=== PATIENT | female | born 2000 | race Caucasian/White ===

== ENCOUNTER 2021-09-03 10:49 | Emergency (ER) | payer MEDICAID ==
[~2021-09-03] VITALS: Ht 165.1 cm; Wt 77.1 kg
[2021-09-03 10:55] VITALS: BP_SYST 154
--- NOTE | 2021-09-03 10:55 | NUR ---
Placed in room 8 . Placed on cathode builder, blood pressure machine and pulse oximeter. To gown for exam. Side rails up.
--- NOTE | 2021-09-03 10:56 | NUR ---
PT BIB UBER FROM HOME C/O "FOOD POISONING" AND LLQ ABD PAIN STARTING THIS AM UPON WAKING UP. PT REPORTS HAVING N/V/D. PT IS MOANING IN PAIN UPON ARRIVAL. STATES SHE FEELS WEAK. PT IS AAOX4, V/S STABLE, AMBULATORY WITH STEADY GAIT
--- NOTE | 2021-09-03 10:57 | NUR ---
ER DR. JAY AT THE BEDSIDE EXAMINING PT
[2021-09-03] MEDS ORDERED: ONDANSETRON 4 MG ODT TAB PO ONE (11:00)
[2021-09-03] MEDS ORDERED: HALOPERIDOL LACTATE 5 MG/ML VIAL IM ONE (11:00)
--- NOTE | 2021-09-03 11:08 | NUR ---
Patient transported to radiology via WC, accompanied by STAFF.
[2021-09-03 11:12] LABS: BILIRUBIN,URINE NEGATIVE (NEGATIVE); CLARITY/URINE CLEAR (CLEAR); COLOR,URINE YELLOW (YELLOW); GLUCOSE,URINE NEGATIVE (NEGATIVE); KETONES,URINE 2+ (NEGATIVE); LEUKOCYTE ESTERASE ,URINE NEGATIVE (NEGATIVE); NITRITE, URINE NEGATIVE (NEGATIVE); PROTEIN URINE 1+ (NEGATIVE); UROBILINOGEN,URINE 0.2 (0.2-1.0)
[2021-09-03 11:22] LABS: BLOOD, URINE TRACE (NEGATIVE)
--- NOTE | 2021-09-03 11:27 | NUR ---
LAB AT THE BEDSIDE FOR BLOOD DRAW
[2021-09-03 11:48] LABS: BASOPHILS % (AUTO) 0.2 % (0.0-2.0); HEMATOCRIT 40.2 % (36-48); HEMOGLOBIN 12.9 g/dL (12.0-16.0); LYMPHOCYTES % (AUTO) 6.8 % (20.5-51.5); MEAN CORPUSCULAR HEMOGLOBIN 23 pg (27-31); MEAN CORPUSCULAR HGB CONC 32 % (32-36); MEAN CORPUSCULAR VOLUME 73 fL (79.0-98.0); MONOCYTES # (AUTO) 0.3 K/uL (0.0-1.0); MONOCYTES % (AUTO) 1.9 % (1.7-9.3); NEUTROPHILS # (AUTO) 13.5 K/uL (1.8-7.7); NEUTROPHILS % (AUTO) 91.1 % (40.0-70.0); PLATELET COUNT (AUTO) 373 K/uL (130-430); RED BLOOD CELL COUNT(AUTO) 5.53 MIL/uL (4.2-6.2); RED CELL DISTRIBUTION WIDTH 15.6 % (9.0-15.0); WHITE BLOOD COUNT (AUTO) 14.9 K/uL (4.5-11.0)
--- NOTE | 2021-09-03 12:00 | NUR ---
PT AMBULATES TO BATHROOM WITH STEADY GAIT, CONTINUES TO HAVE N/V. ANXIOUS, IN DISTRESS, MADE AWARE
[2021-09-03 12:14] LABS: ANION GAP 17 (5-15); CHLORIDE 107 mmol/L (98-107); CREATININE 0.61 mg/dL (0.55-1.30); GLUCOSE 119 mg/dL (70-99); POTASSIUM 3.4 mmol/L (3.5-5.1); SODIUM SERUM 145 mmol/L (136-145); UREA NITROGEN, BLOOD 7 mg/dL (8-21)
[2021-09-03] MEDS ORDERED: NACL 0.9% 1,000 ML IV ONE ×2 (12:15→14:45)
[2021-09-03] MEDS ORDERED: LORazepam 2 MG/ML VIAL IVP ONE (12:15)
[2021-09-03 12:21] LABS: ALANINE AMINOTRANSFERASE 33 U/L (12-78); ALBUMIN 4.4 g/dL (3.4-4.8); AMYLASE 80 U/L (0-100); ASPARTATE AMINOTRANSFERASE 18 U/L (10-37); LIPASE 184 U/L (73-393); TOTAL BILIRUBIN 0.6 mg/dL (0.0-1.0)
[2021-09-03 12:26] LABS: GFR AFRICAN AMERICAN 161 mL/min (>90)
[2021-09-03 12:26] LABS: BACTERIA,URINE RARE /HPF (None Seen); WBC,URINE 0-3 /HPF (0-3)
[2021-09-03 12:27] LABS: MUCUS,URINE 1+ /LPF (None Seen)
[2021-09-03 12:29] LABS: PROTHROMBIN TIME 10.9 SECS (9.5-12.5)
[2021-09-03 12:48] LABS: C-REACTIVE PROTEIN QUANT < 0.2 mg/dL (0-0.5)
--- NOTE | 2021-09-03 13:00 | NUR ---
PT SLEEPING IN GURNEY, NO DISTRESS, V/S STABLE
--- NOTE | 2021-09-03 14:00 | NUR ---
PT SLEEPING IN GURNEY, NO DISTRESS, V/S STABLE
[2021-09-03] MEDS ORDERED: METO-290 PO (14:03)
[2021-09-03] MEDS ORDERED: HYDR-3917 PO (14:03)
[2021-09-03] MEDS ORDERED: IBUP-1969 PO (14:03)
--- NOTE | 2021-09-03 15:00 | NUR ---
PT RESTING IN [facility], REPORTS FEELING BETTER
[2021-09-03 15:46] VITALS: BP_SYST 154
--- NOTE | 2021-09-03 15:48 | NUR ---
Patient given written and verbal discharge instructions and verbalizes understanding. ER MD discussed with patient the results and treatment provided. Patient in stable condition. ID arm band removed. IV catheter removed intact and dressing applied, no active bleeding. Rx of NORCO, IBUPROFEN, REGLAN given. Patient educated on pain management and to follow up with PMD. Pain Scale 0/10. Opportunity for questions provided and answered. Medication side effect fact sheet provided.
== END 2021-09-03 15:46 | disposition home or self-care (01) ==
LOC: SED 10:49
DX: K31.84 Gastroparesis (principal); N83.202 Unspecified ovarian cyst, left side
CPT/HCPCS: 36415; 74176; 76376; 80053; 81000; 81025; 82150; 83605; 83690; 84703; 85025; 85610; 85730; 86140; 96361; 96372; 96374; 99285; J1630; J2060; J7030; Q0162

== ENCOUNTER 2021-09-05 16:21 | Emergency (ER) | payer MEDICAID ==
[~2021-09-05] VITALS: Ht 157.5 cm; Wt 81.6 kg
[2021-09-05 16:21] VITALS: BP_SYST 148
[~2021-09-05 16:21] MED LIST: HYDR-3917 PO; IBUP-1969 PO; METO-290 PO
--- NOTE | 2021-09-05 16:21 | NUR ---
BROUGHT BACK TO BED #6 AND TRIAGED. REPORT GIVEN TO LUIS MANUEL
--- NOTE | 2021-09-05 16:50 | NUR ---
ER at bedside examining patient.
--- NOTE | 2021-09-05 16:55 | NUR ---
Pt. bib uber with c/o N/V since 699 denies anyother pain
[2021-09-05] MEDS ORDERED: HALOPERIDOL LACTATE 5 MG/ML VIAL IM ONE (17:00)
[2021-09-05] MEDS ORDERED: ONDANSETRON 4 MG ODT TAB PO ONE (17:00)
--- NOTE | 2021-09-05 17:25 | NUR ---
# 20 gauge angiocath placed to RAC. Use of asceptic technique. Opsite placed over site. Blood return noted. Blood for lab drawn from site. Flushed with 10 cc of normal saline. No evidence of infiltration noted. Patient tolerated well.
--- NOTE | 2021-09-05 17:25 | NUR ---
Blood collected and sent to lab.
[2021-09-05 17:58] LABS: BASOPHILS % (AUTO) 0.1 % (0.0-2.0); HEMATOCRIT 38.9 % (36-48); HEMOGLOBIN 12.7 g/dL (12.0-16.0); LYMPHOCYTES % (AUTO) 8.3 % (20.5-51.5); MEAN CORPUSCULAR HEMOGLOBIN 23 pg (27-31); MEAN CORPUSCULAR HGB CONC 33 % (32-36); MEAN CORPUSCULAR VOLUME 72 fL (79.0-98.0); MONOCYTES # (AUTO) 0.6 K/uL (0.0-1.0); MONOCYTES % (AUTO) 4.8 % (1.7-9.3); NEUTROPHILS # (AUTO) 10.2 K/uL (1.8-7.7); NEUTROPHILS % (AUTO) 86.8 % (40.0-70.0); PLATELET COUNT (AUTO) 366 K/uL (130-430); RED BLOOD CELL COUNT(AUTO) 5.44 MIL/uL (4.2-6.2); RED CELL DISTRIBUTION WIDTH 14.9 % (9.0-15.0); WHITE BLOOD COUNT (AUTO) 11.8 K/uL (4.5-11.0)
--- NOTE | 2021-09-05 18:09 | NUR ---
pt. sleeping on and off denies any nausea ay this time
[2021-09-05 18:31] LABS: PROTHROMBIN TIME 10.6 SECS (9.5-12.5)
[2021-09-05 19:06] LABS: ANION GAP 13 (5-15); CALCIUM 9.1 mg/dL (8.4-11.0); CHLORIDE 100 mmol/L (98-107); CREATININE 0.62 mg/dL (0.55-1.30); GLUCOSE 104 mg/dL (70-99); SODIUM SERUM 138 mmol/L (136-145); UREA NITROGEN, BLOOD 7 mg/dL (8-21)
[2021-09-05 19:12] LABS: ALANINE AMINOTRANSFERASE 40 U/L (12-78); ALBUMIN 4.3 g/dL (3.4-4.8); AMYLASE 90 U/L (0-100); ASPARTATE AMINOTRANSFERASE 26 U/L (10-37); LIPASE 221 U/L (73-393); TOTAL BILIRUBIN 1.6 mg/dL (0.0-1.0)
[2021-09-05 19:13] LABS: POTASSIUM 2.8 mmol/L (3.5-5.1)
[2021-09-05 19:14] LABS: GFR AFRICAN AMERICAN 158 mL/min (>90)
[2021-09-05] MEDS ORDERED: POTASSIUM CHLORIDE 20 MEQ/PKT PACKET PO ONE (19:15)
[2021-09-05] MEDS ORDERED: METO-290 PO (19:18)
[2021-09-05] MEDS ORDERED: OMEP20CA15 PO (19:18)
--- NOTE | 2021-09-05 19:19 | NUR ---
MARGARITO Garcia'rigo pt stated it was bothering her, report to Sean
[2021-09-05 19:30] VITALS: BP_SYST 130
--- NOTE | 2021-09-05 19:30 | NUR ---
Patient given written and verbal discharge instructions and verbalizes understanding. ER MD discussed with patient the results and treatment provided. Patient in stable condition. ID arm band removed. Rx of Reglan and Omeprazole given. Patient educated on pain management and to follow up with PMD. Pain Scale 0/10 Opportunity for questions provided and answered. Medication side effect fact sheet provided.
[2021-09-05 19:50] LABS: C-REACTIVE PROTEIN QUANT < 0.2 mg/dL (0-0.5)
[2021-09-05 20:03] LABS: BILIRUBIN,URINE NEGATIVE (NEGATIVE); COLOR,URINE YELLOW (YELLOW); GLUCOSE,URINE NEGATIVE (NEGATIVE); KETONES,URINE 3+ (NEGATIVE); LEUKOCYTE ESTERASE ,URINE NEGATIVE (NEGATIVE); NITRITE, URINE NEGATIVE (NEGATIVE); PH,URINE >=9.0 (5.0-8.0); PROTEIN URINE 1+ (NEGATIVE)
[2021-09-05 20:18] LABS: BLOOD, URINE TRACE (NEGATIVE); CLARITY/URINE HAZY (CLEAR)
[2021-09-05 20:48] LABS: BACTERIA,URINE FEW /HPF (None Seen); WBC,URINE 0-3 /HPF (0-3)
[2021-09-05 20:49] LABS: MUCUS,URINE 1+ /LPF (None Seen)
== END 2021-09-05 19:30 | disposition home or self-care (01) ==
LOC: SED 16:21
DX: F12.988 Cannabis use, unspecified with other cannabis-induced disorder (principal); K31.84 Gastroparesis; Z79.899 Other long term (current) drug therapy
CPT/HCPCS: 36415; 80053; 81000; 81025; 82150; 83605; 83690; 84703; 85025; 85610; 85730; 86140; 96372; 99283; J1630; Q0162

== ENCOUNTER 2021-09-06 14:12 | Emergency (ER) | payer MEDICAID ==
[~2021-09-06] VITALS: Ht 157.5 cm; Wt 81.2 kg
[~2021-09-06 14:12] MED LIST changes: +OMEP20CA15 PO
[2021-09-06 14:35] VITALS: BP_SYST 161
--- NOTE | 2021-09-06 14:40 | NUR ---
Pt to bed 5 for evaluation. Report given to ABHI Cartagena.
[2021-09-06] MEDS ORDERED: NACL 0.9% 1,000 ML IV ONE (15:30)
[2021-09-06] MEDS ORDERED: METOCLOPRAMIDE HCL 10 MG/2 ML VIAL IVP ONE (15:30)
[2021-09-06] MEDS ORDERED: PANTOPRAZOLE SODIUM 40 MG/VIAL (PROTONIX) IVP ONE (15:30)
[2021-09-06] MEDS ORDERED: DIPHENHYDRAMINE INJ 50 MG/ML VIAL IVP ONE (15:30)
[2021-09-06 15:48] LABS: BASOPHILS % (AUTO) 0.3 % (0.0-2.0); HEMOGLOBIN 12.3 g/dL (12.0-16.0); LYMPHOCYTES # (AUTO) 1.6 K/uL (1.0-5.5); LYMPHOCYTES % (AUTO) 17.9 % (20.5-51.5); MEAN CORPUSCULAR HEMOGLOBIN 24 pg (27-31); MEAN CORPUSCULAR HGB CONC 33 % (32-36); MEAN CORPUSCULAR VOLUME 72 fL (79.0-98.0); MONOCYTES # (AUTO) 0.8 K/uL (0.0-1.0); MONOCYTES % (AUTO) 9.2 % (1.7-9.3); NEUTROPHILS # (AUTO) 6.5 K/uL (1.8-7.7); NEUTROPHILS % (AUTO) 72.6 % (40.0-70.0); PLATELET COUNT (AUTO) 342 K/uL (130-430); RED BLOOD CELL COUNT(AUTO) 5.13 MIL/uL (4.2-6.2); RED CELL DISTRIBUTION WIDTH 15.1 % (9.0-15.0); WHITE BLOOD COUNT (AUTO) 8.9 K/uL (4.5-11.0)
--- NOTE | 2021-09-06 15:50 | NUR ---
DR NUNES IN TO ASSESS
--- NOTE | 2021-09-06 16:05 | NUR ---
UP AMBULATING STEADY, NO DYSPNEA
--- NOTE | 2021-09-06 16:13 | NUR ---
PROGRAM MGR AT BEDSIDE, PT CALM, ALERT, NO DISTRESS
--- NOTE | 2021-09-06 16:26 | NUR ---
ULTRASOUND IN PROGRESS
[2021-09-06 17:11] LABS: CALCIUM 8.7 mg/dL (8.4-11.0); CREATININE 0.69 mg/dL (0.55-1.30); POTASSIUM 3.4 mmol/L (3.5-5.1); TOTAL BILIRUBIN 1.1 mg/dL (0.0-1.0)
[2021-09-06 17:12] LABS: ALBUMIN 4.2 g/dL (3.4-4.8)
--- NOTE | 2021-09-06 17:44 | NUR ---
UP AMULATING, REQUESTING ORAL FLUIDS, PT CALM, ALERT, NO DISTRESS
--- NOTE | 2021-09-06 19:02 | NUR ---
up walking steady, to bathroom, nad
--- NOTE | 2021-09-06 19:10 | NUR ---
REPORT RECIEVED FROM ABHI LOPEZ. VSS. STATING HAVING MINOR NAUSEA. AMBULATING WITHOUT DIFFICULTIES. VOIDED TO THE RESTROOM.
[2021-09-06] MEDS ORDERED: ONDANSETRON HCL 4 MG/2 ML VIAL IVP ONE (19:30)
[2021-09-06 19:40] VITALS: BP_SYST 141
--- NOTE | 2021-09-06 19:40 | NUR ---
Patient given written and verbal discharge instructions and verbalizes understanding. DR. MANJU TAMAYO MD discussed with patient the results and treatment provided. Patient in stable condition. ID arm band removed. IV catheter removed intact and dressing applied, no active bleeding. Patient educated on pain management and to follow up with PMD. Pain Scale 0/10. Opportunity for questions provided and answered. Medication side effect fact sheet provided.
[2021-09-06 22:23] LABS: BILIRUBIN,URINE NEGATIVE (NEGATIVE); BLOOD, URINE NEGATIVE (NEGATIVE); CLARITY/URINE CLEAR (CLEAR); COLOR,URINE YELLOW (YELLOW); GLUCOSE,URINE NEGATIVE (NEGATIVE); KETONES,URINE NEGATIVE (NEGATIVE); LEUKOCYTE ESTERASE ,URINE NEGATIVE (NEGATIVE); NITRITE, URINE NEGATIVE (NEGATIVE); PROTEIN URINE NEGATIVE (NEGATIVE); UROBILINOGEN,URINE 0.2 (0.2-1.0)
== END 2021-09-06 19:40 | disposition home or self-care (01) ==
LOC: SED 14:12
DX: K31.84 Gastroparesis (principal); R11.2 Nausea with vomiting, unspecified; Z79.899 Other long term (current) drug therapy
CPT/HCPCS: 36415; 76700; 80053; 81003; 83690; 85025; 96361; 96374; 96375; 99285; C9113; J1200; J2405; J2765; J7030

== ENCOUNTER 2021-09-08 18:04 | Emergency (ER) | payer MEDICAID ==
[~2021-09-08] VITALS: Ht 157.5 cm; Wt 81.2 kg
[2021-09-08 18:14] VITALS: BP_SYST 142
[2021-09-08] MEDS ORDERED: NACL 0.9% 1,000 ML IV ONE (22:15)
[2021-09-08 22:44] LABS: HEMATOCRIT 35.7 % (36-48); MEAN CORPUSCULAR VOLUME 72 fL (79.0-98.0); RED BLOOD CELL COUNT(AUTO) 4.93 MIL/uL (4.2-6.2); RED CELL DISTRIBUTION WIDTH 14.8 % (9.0-15.0); WHITE BLOOD COUNT (AUTO) 14.8 K/uL (4.5-11.0)
[2021-09-08 22:48] LABS: CALCIUM 9.1 mg/dL (8.4-11.0); CREATININE 0.7 mg/dL (0.55-1.30); POTASSIUM 3.1 mmol/L (3.5-5.1)
[2021-09-09 00:14] LABS: BASOPHILS % (AUTO) 0.2 % (0.0-2.0); EOSINOPHILS % (AUTO) 0.1 % (0.0-4.0); HEMOGLOBIN 11.6 g/dL (12.0-16.0); LYMPHOCYTES % (AUTO) 13.6 % (20.5-51.5); MEAN CORPUSCULAR HEMOGLOBIN 24 pg (27-31); MEAN CORPUSCULAR HGB CONC 32 % (32-36); MONOCYTES # (AUTO) 1.1 K/uL (0.0-1.0); MONOCYTES % (AUTO) 7.2 % (1.7-9.3); NEUTROPHILS # (AUTO) 11.7 K/uL (1.8-7.7); NEUTROPHILS % (AUTO) 78.9 % (40.0-70.0); PLATELET COUNT (AUTO) 314 K/uL (130-430)
[2021-09-09] MEDS ORDERED: METOCLOPRAMIDE HCL 10 MG/2 ML VIAL IVP ONE (00:30)
[2021-09-09] MEDS ORDERED: PANTOPRAZOLE SODIUM 40 MG/VIAL (PROTONIX) IVP ONE (00:30)
[2021-09-09] MEDS ORDERED: fentaNYL CITRATE/PF 100 MCG/2 ML AMP IVP ONE (00:30)
[2021-09-09 01:07] VITALS: BP_SYST 137
[2021-09-09 01:32] LABS: BILIRUBIN,URINE NEGATIVE (NEGATIVE); BLOOD, URINE TRACE (NEGATIVE); CLARITY/URINE CLEAR (CLEAR); COLOR,URINE YELLOW (YELLOW); GLUCOSE,URINE NEGATIVE (NEGATIVE); KETONES,URINE NEGATIVE (NEGATIVE); LEUKOCYTE ESTERASE ,URINE NEGATIVE (NEGATIVE); NITRITE, URINE NEGATIVE (NEGATIVE); PROTEIN URINE NEGATIVE (NEGATIVE); UROBILINOGEN,URINE 0.2 (0.2-1.0)
[2021-09-09] MEDS ORDERED: PANT20TA2 PO (01:39)
[2021-09-09] MEDS ORDERED: PROC5TAB12 PO (01:39)
[2021-09-09] MEDS ORDERED: HYOS0.1273 PO (01:39)
[2021-09-09] MEDS ORDERED: HYDR-3917 PO (01:39)
[2021-09-09 01:55] LABS: BACTERIA,URINE FEW /HPF (None Seen); MUCUS,URINE None Seen /LPF (None Seen); RBC,URINE 0-3 /HPF (0-3); WBC,URINE 0-3 /HPF (0-3)
== END 2021-09-09 01:51 | disposition home or self-care (01) ==
LOC: SED 18:04
DX: K80.20 Calculus of gallbladder without cholecystitis without obstruction (principal); Z79.899 Other long term (current) drug therapy
CPT/HCPCS: 36415; 80053; 81000; 81025; 83690; 85025; 96361; 96374; 96375; 99284; C9113; J2765; J3010; J7030

== ENCOUNTER 2022-02-06 10:56 | Emergency (ER) | payer MEDICAID ==
[~2022-02-06] VITALS: Ht 157.5 cm; Wt 86.2 kg
[2022-02-06 10:56] VITALS: BP_SYST 126
[~2022-02-06 10:56] MED LIST changes: +HYOS0.1273 PO; +PANT20TA2 PO; +PROC5TAB12 PO
[2022-02-06] MEDS: ONDANSETRON 4 MG ODT TAB PO ONE (11:53)
[2022-02-06 12:04] LABS: BILIRUBIN,URINE 1+ (NEGATIVE); COLOR,URINE YELLOW (YELLOW); GLUCOSE,URINE NEGATIVE (NEGATIVE); KETONES,URINE 1+ (NEGATIVE); LEUKOCYTE ESTERASE ,URINE NEGATIVE (NEGATIVE); NITRITE, URINE NEGATIVE (NEGATIVE); PH,URINE 5.5 (5.0-8.0); PROTEIN URINE 1+ (NEGATIVE)
[2022-02-06 12:14] LABS: BLOOD, URINE TRACE (NEGATIVE)
[2022-02-06 12:15] LABS: BACTERIA,URINE FEW /HPF (None Seen); CLARITY/URINE HAZY (CLEAR); RBC,URINE 0-3 /HPF (0-3); WBC,URINE 0-3 /HPF (0-3)
[2022-02-06 12:16] LABS: URINE AMORPHOUS URATE 2+ /HPF (None Seen)
[2022-02-06] MEDS ORDERED: ONDA-8 TL (12:43)
[2022-02-06] MEDS: HYDROcodone/ACETAMIN 5-325 MG TAB (NORCO/ VICODIN) PO ONE (12:56)
[2022-02-06 12:57] VITALS: BP_SYST 134
== END 2022-02-06 12:57 | disposition home or self-care (01) ==
LOC: SED 10:56
DX: K29.70 Gastritis, unspecified, without bleeding (principal); R11.10 Vomiting, unspecified
CPT/HCPCS: 81000; 81025; 93005; 99284; Q0162

== ENCOUNTER 2022-02-12 23:30 | Emergency (ER) | payer MEDICAID ==
[~2022-02-12] VITALS: Ht 167.6 cm; Wt 113.4 kg
[~2022-02-12 23:30] MED LIST changes: +ONDA-8 TL
[2022-02-12 23:50] VITALS: BP_SYST 138
--- NOTE | 2022-02-12 23:50 | NUR ---
Placed in room 7 . Placed on net washer, blood pressure machine and pulse oximeter. To gown for exam. Side rails up. Report given to BRITTANEY MOE.
[2022-02-13] MEDS ORDERED: DIPHENHYDRAMINE INJ 50 MG/ML VIAL IVP ONE
[2022-02-13] MEDS ORDERED: METOCLOPRAMIDE HCL 10 MG/2 ML VIAL IVP ONE
[2022-02-13] MEDS ORDERED: NACL 0.9% 1,000 ML IV ONE
[2022-02-13] MEDS ORDERED: HALOPERIDOL LACTATE 5 MG/ML VIAL IVP ONE (00:15)
--- NOTE | 2022-02-13 00:39 | NUR ---
# 18 gauge angiocath placed to RAC. Use of asceptic technique. Opsite placed over site. Blood return noted. Blood for lab drawn from site. Flushed with 10 cc of normal saline. No evidence of infiltration noted. Patient tolerated well.
--- NOTE | 2022-02-13 01:00 | NUR ---
ER Dr. Britton at bedside examining patient.
[2022-02-13 01:16] LABS: CALCIUM 9.7 mg/dL (8.4-11.0); CREATININE 0.69 mg/dL (0.55-1.30); POTASSIUM 3.6 mmol/L (3.5-5.1)
[2022-02-13 01:29] LABS: ALBUMIN 4.6 g/dL (3.4-4.8); TOTAL BILIRUBIN 1.4 mg/dL (0.0-1.0)
[2022-02-13 01:34] LABS: CLARITY/URINE CLEAR (CLEAR); COLOR,URINE YELLOW (YELLOW)
[2022-02-13 01:36] LABS: BILIRUBIN,URINE NEGATIVE (NEGATIVE); BLOOD, URINE 1+ (NEGATIVE); GLUCOSE,URINE NEGATIVE (NEGATIVE); KETONES,URINE 2+ (NEGATIVE); LEUKOCYTE ESTERASE ,URINE NEGATIVE (NEGATIVE); NITRITE, URINE NEGATIVE (NEGATIVE); PH,URINE >=9.0 (5.0-8.0); PROTEIN URINE TRACE (NEGATIVE)
[2022-02-13 01:37] LABS: UROBILINOGEN,URINE 0.2 (0.2-1.0)
--- NOTE | 2022-02-13 01:41 | NUR ---
Patient stated she "I want to leave because I have work." Patient spoke to Dr. Dominguez and verbalized desire to leave. Patient passed oral fluid challenge. Patient stated, "I don't feel like I want to throw up anymore." Dr. Dominguez informed that patient passed oral fluid challenge. Dr. Dominguez verbalized understanding, no new orders.
--- NOTE | 2022-02-13 01:45 | NUR ---
Patient does not wish to proceed with medical care recommended by . Patient given information related to possible complications, up to and including , which could occur as a result of leaving hospital at this time. Patient verbalizes understanding of risks involved leaving against medical advice. Patient has signed AMA form.
[2022-02-13 02:04] LABS: BASOPHILS % (AUTO) 0.3 % (0.0-2.0); EOSINOPHILS % (AUTO) 0.1 % (0.0-4.0); HEMATOCRIT 39.5 % (36-48); HEMOGLOBIN 12.3 g/dL (12.0-16.0); LYMPHOCYTES # (AUTO) 1.3 K/uL (1.0-5.5); LYMPHOCYTES % (AUTO) 7.3 % (20.5-51.5); MEAN CORPUSCULAR HEMOGLOBIN 22 pg (27-31); MEAN CORPUSCULAR HGB CONC 31 % (32-36); MEAN CORPUSCULAR VOLUME 71 fL (79.0-98.0); MONOCYTES # (AUTO) 0.4 K/uL (0.0-1.0); MONOCYTES % (AUTO) 2.2 % (1.7-9.3); NEUTROPHILS # (AUTO) 15.6 K/uL (1.8-7.7); NEUTROPHILS % (AUTO) 90.1 % (40.0-70.0); PLATELET COUNT (AUTO) 406 K/uL (130-430); RED BLOOD CELL COUNT(AUTO) 5.58 MIL/uL (4.2-6.2); RED CELL DISTRIBUTION WIDTH 14.7 % (9.0-15.0); WHITE BLOOD COUNT (AUTO) 17.2 K/uL (4.5-11.0)
[2022-02-13 03:23] LABS: URINE SULFO SALICYLIC ACID NEGATIVE (NEGATIVE)
[2022-02-13 04:45] VITALS: BP_SYST 125
== END 2022-02-13 01:45 | disposition left against medical advice (07) ==
LOC: SED 23:30
DX: R10.84 Generalized abdominal pain (principal); R11.10 Vomiting, unspecified; R19.7 Diarrhea, unspecified; Z79.899 Other long term (current) drug therapy
CPT/HCPCS: 36415; 80053; 81003; 81025; 83690; 84702; 85025; 93005; 96361; 96374; 96375; 99284; J1200; J1630; J2765; J7030

== ENCOUNTER 2022-03-08 11:35 | Emergency (ER) | payer MEDICAID ==
[~2022-03-08] VITALS: Ht 157.5 cm; Wt 83.0 kg
[2022-03-08 11:50] VITALS: BP_SYST 166
--- NOTE | 2022-03-08 12:07 | NUR ---
md at bedside. bib bls for abd pain from urgent care
[2022-03-08] MEDS ORDERED: NACL 0.9% 1,000 ML IV ONE (12:30)
[2022-03-08] MEDS ORDERED: MAG HYDROX/AL HYDROX/SIMETH 30 ML, DICYCLOMINE HCL 20 MG, LIDOCAINE VISCOUS 2% 15ML (PO... PO ONE ×3 (12:30)
[2022-03-08 12:42] LABS: BASOPHILS % (AUTO) 0.1 % (0.0-2.0); HEMATOCRIT 39.5 % (36-48); HEMOGLOBIN 12.3 g/dL (12.0-16.0); LYMPHOCYTES # (AUTO) 0.7 K/uL (1.0-5.5); LYMPHOCYTES % (AUTO) 5.2 % (20.5-51.5); MEAN CORPUSCULAR HEMOGLOBIN 22 pg (27-31); MEAN CORPUSCULAR HGB CONC 31 % (32-36); MEAN CORPUSCULAR VOLUME 71 fL (79.0-98.0); MONOCYTES # (AUTO) 0.2 K/uL (0.0-1.0); MONOCYTES % (AUTO) 1.9 % (1.7-9.3); NEUTROPHILS # (AUTO) 11.6 K/uL (1.8-7.7); NEUTROPHILS % (AUTO) 92.8 % (40.0-70.0); PLATELET COUNT (AUTO) 325 K/uL (130-430); RED BLOOD CELL COUNT(AUTO) 5.55 MIL/uL (4.2-6.2); RED CELL DISTRIBUTION WIDTH 15.2 % (9.0-15.0); WHITE BLOOD COUNT (AUTO) 12.5 K/uL (4.5-11.0)
--- NOTE | 2022-03-08 12:53 | NUR ---
pt vomitted up gi yina hackett aware
[2022-03-08 12:55] LABS: CALCIUM 8.5 mg/dL (8.4-11.0); CREATININE 0.63 mg/dL (0.55-1.30); POTASSIUM 3.3 mmol/L (3.5-5.1)
[2022-03-08 13:00] LABS: ALBUMIN 4.4 g/dL (3.4-4.8); TOTAL BILIRUBIN 0.7 mg/dL (0.0-1.0)
[2022-03-08] MEDS ORDERED: HALOPERIDOL LACTATE 5 MG/ML VIAL IVP ONE ×3 (13:00→14:15)
[2022-03-08 13:05] LABS: BILIRUBIN,URINE NEGATIVE (NEGATIVE); BLOOD, URINE TRACE (NEGATIVE); CLARITY/URINE CLEAR (CLEAR); COLOR,URINE YELLOW (YELLOW); GLUCOSE,URINE NEGATIVE (NEGATIVE); KETONES,URINE 2+ (NEGATIVE); LEUKOCYTE ESTERASE ,URINE NEGATIVE (NEGATIVE); NITRITE, URINE NEGATIVE (NEGATIVE); PROTEIN URINE TRACE (NEGATIVE); UROBILINOGEN,URINE 0.2 (0.2-1.0)
--- NOTE | 2022-03-08 13:10 | NUR ---
dr velez at bedside again
[2022-03-08 13:17] LABS: BACTERIA,URINE FEW /HPF (None Seen); MUCUS,URINE 1+ /LPF (None Seen); WBC,URINE 0-3 /HPF (0-3)
--- NOTE | 2022-03-08 13:29 | NUR ---
pt to x ray
--- NOTE | 2022-03-08 14:08 | NUR ---
PT TOLERATED PO CHALLENGE WITHOUT INCIDENT
[2022-03-08] MEDS ORDERED: DICY10SO PO (14:47)
[2022-03-08] MEDS ORDERED: ONDA-8 TL (14:47)
[2022-03-08] MEDS ORDERED: OMEP40CA20 PO (14:47)
[2022-03-08 15:00] VITALS: BP_SYST 111
--- NOTE | 2022-03-08 15:01 | NUR ---
Patient given written and verbal discharge instructions and verbalizes understanding. BELKIS velez MD discussed with patient the results and treatment provided. Patient in stable condition. ID arm band removed. IV catheter removed intact and dressing applied, no active bleeding. Rx of dicyclomine, prilosec, zofran given. Patient educated on pain management and to follow up with PMD. Pain Scale 0. Opportunity for questions provided and answered. Medication side effect fact sheet provided.
[2022-03-13] MEDS ORDERED: NITR-85 PO (18:37)
[2022-03-13] MEDS ORDERED: IBUP-1970 PO (18:37)
[2022-04-06] MEDS ORDERED: HYOS0.1275 PO (00:33)
[2022-04-06] MEDS ORDERED: COMR25 RC (00:33)
[2022-04-06] MEDS ORDERED: PROC10TA13 PO (00:33)
== END 2022-03-08 15:00 | disposition home or self-care (01) ==
LOC: SED 11:35 → MERGE 11:35 → SED 15:00
DX: R11.15 Cyclical vomiting syndrome unrelated to migraine (principal); K29.50 Unspecified chronic gastritis without bleeding; F41.9 Anxiety disorder, unspecified; F12.90 Cannabis use, unspecified, uncomplicated; Z79.899 Other long term (current) drug therapy
CPT/HCPCS: 36415; 74018; 80053; 81000; 81025; 83690; 85025; 93005; 96361; 96374; 96376; 99285; J1630; J2001; J7030

== ENCOUNTER 2022-04-12 12:00 | Emergency (ER) | payer MEDICAID ==
[~2022-04-12] VITALS: Ht 157.5 cm; Wt 82.6 kg
[2022-04-12 12:10] VITALS: BP_SYST 123
--- NOTE | 2022-04-12 12:13 | NUR ---
Patient to ER bed 3 to gown for evaluation. Side rails up. Report given to Kun MOE.
[2022-04-12 12:15] VITALS: BP_SYST 123
--- NOTE | 2022-04-12 12:17 | NUR ---
ER DR. ROSALES AT THE BEDSIDE EXAMINING PT
--- NOTE | 2022-04-12 12:20 | NUR ---
RECEIVED PATIENT IN BED #3, FROM HOME WITH CC OF N/V/D. PT IS STABLE, NAD, VSS, AAOx3. PT TO BE FURTHER ASSESSED BY ED MD FOR PLAN OF CARE WITH DISPOSITION.
[2022-04-12] MEDS ORDERED: ONDA-8 TL (12:21)
[2022-04-12] MEDS ORDERED: LOM2.5 PO (12:21)
--- NOTE | 2022-04-12 12:35 | NUR ---
Patient given written and verbal discharge instructions and verbalizes understanding. ER MD discussed with patient the results and treatment provided. Patient in stable condition. ID arm band removed. Rx of given. Patient educated on pain management and to follow up with PMD. Opportunity for questions provided and answered. Medication side effect fact sheet provided.
== END 2022-04-12 12:35 | disposition home or self-care (01) ==
LOC: SED 12:00
DX: K52.9 Noninfective gastroenteritis and colitis, unspecified (principal); Z79.899 Other long term (current) drug therapy
CPT/HCPCS: 99283

== ENCOUNTER 2022-04-18 10:28 | Inpatient (IN) | payer MEDICAID ==
[~2022-04-18] VITALS: Ht 157.5 cm; Wt 85.7 kg
[2022-04-18 10:28] VITALS: BP_SYST 170
[~2022-04-18 10:28] MED LIST changes: +COMR25 RC; +HYOS0.1275 PO; +IBUP-1970 PO; +LOM2.5 PO; +NITR-85 PO; +OMEP40CA20 PO; +PROC10TA13 PO
[2022-04-18] MEDS ORDERED: ONDANSETRON HCL 4 MG/2 ML VIAL IVP ONE (11:00)
[2022-04-18] MEDS ORDERED: MORPHINE 4 MG INJ. 4 MG/ML VIAL IVP ONE ×2 (11:00→13:00)
[2022-04-18] MEDS ORDERED: NACL 0.9% 1,000 ML IV ONE (11:00)
[2022-04-18 11:09] LABS: BASOPHILS % (AUTO) 0.1 % (0.0-2.0); HEMATOCRIT 35.8 % (36-48); HEMOGLOBIN 11.5 g/dL (12.0-16.0); LYMPHOCYTES # (AUTO) 0.8 K/uL (1.0-5.5); LYMPHOCYTES % (AUTO) 4.9 % (20.5-51.5); MEAN CORPUSCULAR HEMOGLOBIN 23 pg (27-31); MEAN CORPUSCULAR HGB CONC 32 % (32-36); MEAN CORPUSCULAR VOLUME 71 fL (79.0-98.0); MONOCYTES # (AUTO) 0.5 K/uL (0.0-1.0); MONOCYTES % (AUTO) 2.9 % (1.7-9.3); NEUTROPHILS # (AUTO) 15.2 K/uL (1.8-7.7); NEUTROPHILS % (AUTO) 92.1 % (40.0-70.0); PLATELET COUNT (AUTO) 357 K/uL (130-430); RED BLOOD CELL COUNT(AUTO) 5.08 MIL/uL (4.2-6.2); RED CELL DISTRIBUTION WIDTH 15.6 % (9.0-15.0); WHITE BLOOD COUNT (AUTO) 16.4 K/uL (4.5-11.0)
[2022-04-18 11:22] LABS: BILIRUBIN,URINE NEGATIVE (NEGATIVE); BLOOD, URINE NEGATIVE (NEGATIVE); CLARITY/URINE CLEAR (CLEAR); GLUCOSE,URINE NEGATIVE (NEGATIVE); KETONES,URINE NEGATIVE (NEGATIVE); LEUKOCYTE ESTERASE ,URINE NEGATIVE (NEGATIVE); NITRITE, URINE NEGATIVE (NEGATIVE); PROTEIN URINE NEGATIVE (NEGATIVE); UROBILINOGEN,URINE 0.2 (0.2-1.0)
[2022-04-18 11:27] LABS: COLOR,URINE STRAW (YELLOW)
[2022-04-18 11:28] LABS: CALCIUM 8.3 mg/dL (8.4-11.0); CREATININE 0.87 mg/dL (0.55-1.30)
[2022-04-18 11:33] LABS: ALBUMIN 4.1 g/dL (3.4-4.8); TOTAL BILIRUBIN 0.5 mg/dL (0.0-1.0)
[2022-04-18 11:44] LABS: BARBITURATE, URINE NEGATIVE (NEG <=200); CANNABINOID, URINE POSITIVE (NEG <=50); COCAINE, URINE NEGATIVE (NEG <=150); METHAMPHETAMINES SCREEN,URINE NEGATIVE (NEG <=500); URINE AMPHETAMINE NEGATIVE (NEG <=500); URINE METHADONE NEGATIVE (NEG <=200)
[2022-04-18 11:45] LABS: BENZODIAZEPINE, URINE POSITIVE (NEG <=150); OPIATE, URINE POSITIVE (NEG <=100); PHENCYCLIDINE SCREEN,URINE NEGATIVE (NEG <=25); UR TRICYCLIC ANTIDEPRESSANTS POSITIVE (NEG <=300); URINE OXYCODONE SCREEN NEGATIVE (NEG <=100); URINE PROPOXYPHENE SCREEN NEGATIVE (NEG <=300)
[2022-04-18] MEDS ORDERED: HALOPERIDOL LACTATE 5 MG/ML VIAL IVP ONE (12:15)
[2022-04-18] MEDS ORDERED: LORazepam 2 MG/ML VIAL IVP ONE (13:00)
[2022-04-18] MEDS ORDERED: DOCUSATE SODIUM 100 MG CAPSULE PO PRN (13:00)
[2022-04-18] MEDS ORDERED: LORazepam 2 MG/ML VIAL IVP PRN (13:00)
[2022-04-18] MEDS ORDERED: POTASSIUM CHLORIDE 20 MEQ TAB.PRT.SR PO PRN (13:00)
[2022-04-18] MEDS ORDERED: MUPIROCIN 2% TOPICAL OINTMENT 22 GM NS PRN (13:00)
[2022-04-18] MEDS ORDERED: ACETAMINOPHEN 325 MG TABLET PO PRN ×3 (13:00→13:15)
[2022-04-18] MEDS ORDERED: ONDANSETRON HCL 4 MG/2 ML VIAL IVP PRN ×2 (13:00)
[2022-04-18] MEDS ORDERED: MAGNESIUM SULFATE 50 ML IV PRN (13:00)
[2022-04-18] MEDS ORDERED: POTASSIUM CHLORIDE 20 MEQ/PKT PACKET PO ONE (13:15)
[2022-04-18] MEDS ORDERED: QUET300T2 PO (13:55)
[2022-04-18] MEDS ORDERED: HYDR-3917 PO (13:55)
[2022-04-18] MEDS: NACL 0.9% 1,000 ML IV SCH (14:34)
[2022-04-18 18:05] VITALS: BP_SYST 124
[2022-04-18 20:11] VITALS: BP_SYST 122
[2022-04-19] MEDS: MORPHINE 2 MG/ML INJ. SYRINGE IVP PRN ×3 (00:50→23:35)
[2022-04-19 00:54] VITALS: BP_SYST 130
[2022-04-19] MEDS: NACL 0.9% 1,000 ML IV SCH (03:45)
[2022-04-19 08:10] LABS: BASOPHILS % (AUTO) 0.5 % (0.0-2.0); EOSINOPHILS # (AUTO) 0.1 K/uL (0.0-0.4); EOSINOPHILS % (AUTO) 0.7 % (0.0-4.0); HEMATOCRIT 32.2 % (36-48); HEMOGLOBIN 10.6 g/dL (12.0-16.0); LYMPHOCYTES # (AUTO) 2.3 K/uL (1.0-5.5); LYMPHOCYTES % (AUTO) 26.2 % (20.5-51.5); MEAN CORPUSCULAR HEMOGLOBIN 24 pg (27-31); MEAN CORPUSCULAR HGB CONC 33 % (32-36); MEAN CORPUSCULAR VOLUME 72 fL (79.0-98.0); MONOCYTES # (AUTO) 0.9 K/uL (0.0-1.0); MONOCYTES % (AUTO) 10.3 % (1.7-9.3); NEUTROPHILS # (AUTO) 5.5 K/uL (1.8-7.7); NEUTROPHILS % (AUTO) 62.3 % (40.0-70.0); PLATELET COUNT (AUTO) 341 K/uL (130-430); RED CELL DISTRIBUTION WIDTH 15.5 % (9.0-15.0); WHITE BLOOD COUNT (AUTO) 8.9 K/uL (4.5-11.0)
[2022-04-19] MEDS: PANTOPRAZOLE SODIUM 40 MG/VIAL (PROTONIX) IVP SCH (08:24)
[2022-04-19 08:26] VITALS: BP_SYST 121
[2022-04-19 08:59] LABS: CALCIUM 8.8 mg/dL (8.4-11.0); CREATININE 0.59 mg/dL (0.55-1.30); POTASSIUM 3.5 mmol/L (3.5-5.1)
[2022-04-19 12:34] VITALS: BP_SYST 125
[2022-04-19 16:11] VITALS: BP_SYST 123
[2022-04-19 19:50] VITALS: BP_SYST 134
[2022-04-19] MEDS ORDERED: QUEtiapine FUMARATE 100 MG TABLET PO SCH (21:00)
[2022-04-20 00:05] VITALS: BP_SYST 124
[2022-04-20] MEDS ORDERED: NACL 0.9% 1,000 ML IV SCH (07:30)
[2022-04-20] MEDS ORDERED: ONDANSETRON HCL 4 MG/2 ML VIAL IVP ONE (07:30)
[2022-04-20 07:39] LABS: BASOPHILS # (AUTO) 0.1 K/uL (0.0-0.2); BASOPHILS % (AUTO) 0.7 % (0.0-2.0); EOSINOPHILS # (AUTO) 0.2 K/uL (0.0-0.4); EOSINOPHILS % (AUTO) 2.1 % (0.0-4.0); HEMATOCRIT 35.6 % (36-48); HEMOGLOBIN 11.5 g/dL (12.0-16.0); LYMPHOCYTES % (AUTO) 26.4 % (20.5-51.5); MEAN CORPUSCULAR HEMOGLOBIN 23 pg (27-31); MEAN CORPUSCULAR HGB CONC 32 % (32-36); MEAN CORPUSCULAR VOLUME 71 fL (79.0-98.0); MONOCYTES # (AUTO) 0.8 K/uL (0.0-1.0); NEUTROPHILS # (AUTO) 4.5 K/uL (1.8-7.7); NEUTROPHILS % (AUTO) 59.8 % (40.0-70.0); PLATELET COUNT (AUTO) 370 K/uL (130-430); RED BLOOD CELL COUNT(AUTO) 5.02 MIL/uL (4.2-6.2); RED CELL DISTRIBUTION WIDTH 15.5 % (9.0-15.0); WHITE BLOOD COUNT (AUTO) 7.6 K/uL (4.5-11.0)
[2022-04-20] MEDS: MORPHINE 2 MG/ML INJ. SYRINGE IVP PRN ×2 (08:02→12:59)
[2022-04-20 08:07] VITALS: BP_SYST 158
[2022-04-20 08:14] LABS: CALCIUM 8.4 mg/dL (8.4-11.0); CREATININE 0.66 mg/dL (0.55-1.30); POTASSIUM 3.6 mmol/L (3.5-5.1)
[2022-04-20] MEDS: PANTOPRAZOLE SODIUM 40 MG/VIAL (PROTONIX) IVP SCH (08:24)
[2022-04-20 12:33] VITALS: BP_SYST 147
[2022-04-20 14:51] VITALS: BP_SYST 138
== END 2022-04-20 16:00 | disposition home or self-care (01) | DRG 251 ==
LOC: SED 10:28 → MERGE 12:53 → STU 12:53
PROVIDERS: ADMIT Family Medicine; ATTEND Family Medicine
DX: R10.9 Unspecified abdominal pain (principal); E87.1 Hypo-osmolality and hyponatremia; F12.10 Cannabis abuse, uncomplicated; D50.9 Iron deficiency anemia, unspecified; D64.9 Anemia, unspecified; E87.6 Hypokalemia; K29.70 Gastritis, unspecified, without bleeding; F19.10 Other psychoactive substance abuse, uncomplicated; Z20.822 Contact with and (suspected) exposure to COVID-19; Z79.891 Long term (current) use of opiate analgesic; Z79.899 Other long term (current) drug therapy
CPT/HCPCS: 36415; 71046-TC; 76376; 80048; 80053; 80307; 81003; 83605; 83690; 83735; 85025; 93005; 96374; 96375; 96376; 99285; C9113; G0378; J1630; J2060; J2270; J2405

== ENCOUNTER 2022-04-27 04:49 | Emergency (ER) | payer MEDICAID ==
[~2022-04-27] VITALS: Ht 157.5 cm; Wt 85.7 kg
[~2022-04-27 04:49] MED LIST changes: -COMR25 RC; -HYOS0.1275 PO; -IBUP-1970 PO; -NITR-85 PO; -OMEP40CA20 PO; -PROC10TA13 PO; +QUET300T2 PO
[2022-04-27 05:00] VITALS: BP_SYST 170
[2022-04-27] MEDS ORDERED: MORPHINE 4 MG INJ. 4 MG/ML VIAL IM ONE (05:00)
[2022-04-27] MEDS ORDERED: KETOROLAC TROMETHAMINE 60 MG/2 ML VIAL IM ONE (05:45)
[2022-04-27 06:34] LABS: BILIRUBIN,URINE NEGATIVE (NEGATIVE); BLOOD, URINE NEGATIVE (NEGATIVE); CLARITY/URINE SL CLOUDY (CLEAR); COLOR,URINE YELLOW (YELLOW); GLUCOSE,URINE NEGATIVE (NEGATIVE); KETONES,URINE TRACE (NEGATIVE); LEUKOCYTE ESTERASE ,URINE NEGATIVE (NEGATIVE); NITRITE, URINE NEGATIVE (NEGATIVE); PH,URINE 5.5 (5.0-8.0); PROTEIN URINE 1+ (NEGATIVE); UROBILINOGEN,URINE 0.2 (0.2-1.0)
[2022-04-27] MEDS ORDERED: LORazepam 2 MG/ML VIAL IM ONE (06:45)
[2022-04-27] MEDS ORDERED: HALOPERIDOL LACTATE 5 MG/ML VIAL IM ONE (06:45)
[2022-04-27 06:49] LABS: BASOPHILS # (AUTO) 0.1 K/uL (0.0-0.2); BASOPHILS % (AUTO) 0.5 % (0.0-2.0); EOSINOPHILS # (AUTO) 0.1 K/uL (0.0-0.4); EOSINOPHILS % (AUTO) 0.3 % (0.0-4.0); HEMATOCRIT 35.2 % (36-48); HEMOGLOBIN 11.4 g/dL (12.0-16.0); LYMPHOCYTES # (AUTO) 1.6 K/uL (1.0-5.5); LYMPHOCYTES % (AUTO) 8.7 % (20.5-51.5); MEAN CORPUSCULAR HEMOGLOBIN 23 pg (27-31); MEAN CORPUSCULAR HGB CONC 33 % (32-36); MEAN CORPUSCULAR VOLUME 71 fL (79.0-98.0); MONOCYTES # (AUTO) 0.6 K/uL (0.0-1.0); MONOCYTES % (AUTO) 3.4 % (1.7-9.3); NEUTROPHILS # (AUTO) 15.5 K/uL (1.8-7.7); NEUTROPHILS % (AUTO) 87.1 % (40.0-70.0); PLATELET COUNT (AUTO) 372 K/uL (130-430); RED BLOOD CELL COUNT(AUTO) 4.97 MIL/uL (4.2-6.2); RED CELL DISTRIBUTION WIDTH 15.3 % (9.0-15.0); WHITE BLOOD COUNT (AUTO) 17.8 K/uL (4.5-11.0)
[2022-04-27 07:08] LABS: CALCIUM 9.3 mg/dL (8.4-11.0); CREATININE 0.81 mg/dL (0.55-1.30); POTASSIUM 3.4 mmol/L (3.5-5.1)
[2022-04-27 07:09] LABS: BACTERIA,URINE FEW /HPF (None Seen); RBC,URINE 0-3 /HPF (0-3); WBC,URINE 0-3 /HPF (0-3)
[2022-04-27 07:10] LABS: CALCIUM OXALATE CRYSTALS,UR 50-70 /HPF (None Seen); MUCUS,URINE 3+ /LPF (None Seen)
[2022-04-27 07:16] LABS: BARBITURATE, URINE NEGATIVE (NEG <=200); BENZODIAZEPINE, URINE NEGATIVE (NEG <=150); CANNABINOID, URINE POSITIVE (NEG <=50); METHAMPHETAMINES SCREEN,URINE NEGATIVE (NEG <=500); UR TRICYCLIC ANTIDEPRESSANTS POSITIVE (NEG <=300); URINE AMPHETAMINE NEGATIVE (NEG <=500); URINE METHADONE NEGATIVE (NEG <=200)
[2022-04-27 07:17] LABS: COCAINE, URINE NEGATIVE (NEG <=150); OPIATE, URINE NEGATIVE (NEG <=100); PHENCYCLIDINE SCREEN,URINE NEGATIVE (NEG <=25); URINE OXYCODONE SCREEN NEGATIVE (NEG <=100); URINE PROPOXYPHENE SCREEN NEGATIVE (NEG <=300)
[2022-04-27 07:20] LABS: TOTAL BILIRUBIN 0.2 mg/dL (0.0-1.0)
[2022-04-27] MEDS ORDERED: METO-290 PO (07:49)
[2022-04-27] MEDS ORDERED: IBUP-1969 PO (07:49)
[2022-04-27 08:15] VITALS: BP_SYST 170
== END 2022-04-27 08:15 | disposition home or self-care (01) ==
LOC: SED 04:49
DX: K31.84 Gastroparesis (principal); R11.10 Vomiting, unspecified; Z91.010 Allergy to peanuts; Z79.899 Other long term (current) drug therapy
CPT/HCPCS: 36415; 74176; 76376; 76856; 80053; 80307; 81000; 81025; 83690; 84702; 85025; 96372; 99284; J1630; J1885; J2060

== ENCOUNTER 2022-04-29 15:26 | Emergency (ER) | payer MEDICAID ==
[~2022-04-29] VITALS: Ht 157.5 cm; Wt 83.5 kg
[2022-04-29 15:26] VITALS: BP_SYST 150
[~2022-04-29 15:26] MED LIST changes: +COMR25 RC; +HYOS0.1275 PO; +IBUP-1970 PO; +NITR-85 PO; +OMEP40CA20 PO; +PROC10TA13 PO
[2022-04-29] MEDS ORDERED: HALOPERIDOL LACTATE 5 MG/ML VIAL IM ONE ×2 (16:00)
[2022-04-29] MEDS ORDERED: DIPHENHYDRAMINE INJ 50 MG/ML VIAL IM ONE (16:30)
[2022-04-29] MEDS ORDERED: LORazepam 2 MG/ML VIAL IM ONE (16:30)
[2022-04-29 16:58] LABS: BILIRUBIN,URINE NEGATIVE (NEGATIVE); BLOOD, URINE NEGATIVE (NEGATIVE); CLARITY/URINE CLEAR (CLEAR); COLOR,URINE YELLOW (YELLOW); GLUCOSE,URINE NEGATIVE (NEGATIVE); KETONES,URINE NEGATIVE (NEGATIVE); LEUKOCYTE ESTERASE ,URINE NEGATIVE (NEGATIVE); NITRITE, URINE NEGATIVE (NEGATIVE); PH,URINE 6.5 (5.0-8.0); PROTEIN URINE NEGATIVE (NEGATIVE); UROBILINOGEN,URINE 0.2 (0.2-1.0)
[2022-04-29 17:09] LABS: BARBITURATE, URINE NEGATIVE (NEG <=200); BENZODIAZEPINE, URINE POSITIVE (NEG <=150); CANNABINOID, URINE POSITIVE (NEG <=50); COCAINE, URINE NEGATIVE (NEG <=150); METHAMPHETAMINES SCREEN,URINE NEGATIVE (NEG <=500); OPIATE, URINE NEGATIVE (NEG <=100); PHENCYCLIDINE SCREEN,URINE NEGATIVE (NEG <=25); UR TRICYCLIC ANTIDEPRESSANTS POSITIVE (NEG <=300); URINE AMPHETAMINE NEGATIVE (NEG <=500); URINE METHADONE NEGATIVE (NEG <=200); URINE OXYCODONE SCREEN NEGATIVE (NEG <=100); URINE PROPOXYPHENE SCREEN NEGATIVE (NEG <=300)
[2022-04-29] MEDS ORDERED: ZIPRASIDONE HCL 20 MG CAPSULE (GEODON) PO ONE (17:30)
[2022-04-29] MEDS ORDERED: LORazepam 2 MG/ML VIAL IVP ONE (17:45)
[2022-04-29] MEDS ORDERED: NACL 0.9% 1,000 ML IV ONE (18:00)
[2022-04-29 18:10] LABS: MEAN CORPUSCULAR HEMOGLOBIN 23 pg (27-31); MEAN CORPUSCULAR HGB CONC 33 % (32-36); MEAN CORPUSCULAR VOLUME 72 fL (79.0-98.0)
[2022-04-29 18:16] LABS: BASOPHILS % (AUTO) 0.2 % (0.0-2.0); EOSINOPHILS % (AUTO) 0.1 % (0.0-4.0); HEMATOCRIT 34.2 % (36-48); HEMOGLOBIN 11.1 g/dL (12.0-16.0); LYMPHOCYTES # (AUTO) 1.4 K/uL (1.0-5.5); LYMPHOCYTES % (AUTO) 11.5 % (20.5-51.5); MONOCYTES # (AUTO) 0.9 K/uL (0.0-1.0); MONOCYTES % (AUTO) 7.6 % (1.7-9.3); NEUTROPHILS # (AUTO) 9.6 K/uL (1.8-7.7); NEUTROPHILS % (AUTO) 80.6 % (40.0-70.0); PLATELET COUNT (AUTO) 364 K/uL (130-430); RED BLOOD CELL COUNT(AUTO) 4.78 MIL/uL (4.2-6.2); RED CELL DISTRIBUTION WIDTH 15.9 % (9.0-15.0); WHITE BLOOD COUNT (AUTO) 11.9 K/uL (4.5-11.0)
[2022-04-29 18:35] LABS: ANION GAP 12 (5-15); CALCIUM 8.5 mg/dL (8.4-11.0); CHLORIDE 102 mmol/L (98-107); CREATININE 0.87 mg/dL (0.55-1.30); GFR AFRICAN AMERICAN 107 mL/min (>90); GLUCOSE 107 mg/dL (70-99); POTASSIUM 3.7 mmol/L (3.5-5.1); SODIUM SERUM 138 mmol/L (136-145); UREA NITROGEN, BLOOD 9 mg/dL (8-21)
[2022-04-29 18:36] LABS: ACETAMINOPHEN < 1 ug/mL (1-30); ALANINE AMINOTRANSFERASE 59 U/L (12-78); ASPARTATE AMINOTRANSFERASE 16 U/L (10-37); TOTAL BILIRUBIN 0.3 mg/dL (0.0-1.0)
[2022-04-29 21:12] VITALS: BP_SYST 119
[2022-04-30] MEDS ORDERED: ASPIRIN 81 MG TAB.CHEW ONE (03:10)
== END 2022-04-29 21:12 | disposition home or self-care (01) ==
LOC: SED 15:26
DX: F99 Mental disorder, not otherwise specified (principal); F19.10 Other psychoactive substance abuse, uncomplicated
CPT/HCPCS: 36415; 70450; 76376; 80053; 80307; 81003; 81025; 85025; 93005; 96361; 96372; 96374; 99285; G0480; G0481; G0482; J1200; J1630; J2060; J7030

== ENCOUNTER 2022-05-12 06:20 | Emergency (ER) | payer MEDICAID ==
[~2022-05-12] VITALS: Ht 157.5 cm; Wt 81.6 kg
[~2022-05-12 06:20] MED LIST changes: -COMR25 RC; -HYOS0.1275 PO; -IBUP-1970 PO; -NITR-85 PO; -OMEP40CA20 PO; -PROC10TA13 PO
[2022-05-12 06:37] VITALS: BP_SYST 133
--- NOTE | 2022-05-12 06:42 | NUR ---
Patient triaged and placed in waiting room. VS checked and patient appears in no acute distress at this time. Accompanied by self, awaiting available bed, and MD notified of need for MSE.
--- NOTE | 2022-05-12 07:00 | NUR ---
21 YR OLD FEMALE PT STATES "I CANT SLEEP." PT PACING AND SITING ON MULTIPLE SEATS IN THE ER WAITING ROOM. MD IN THE TRIAGE AREA FOR EVALUATION OF THE PATIENT. PT ENCOUARGED TO RELAX. WILL MONITOR NEEDED
[2022-05-12] MEDS ORDERED: HYDR50TA61 PO (07:03)
[2022-05-12] MEDS ORDERED: MELA1TAB29 PO (07:03)
--- NOTE | 2022-05-12 07:49 | NUR ---
PT DISCHARGED WITH HOMECARE INSTRUCTIONS, ENCOURAGED TO CONSUMED LOTS OF FLUIDS FOR HYDRATION. PT ENCOURAGED TO FOLLOW UP WITH PRIMARY CARE DOCTOR FOR FOLLOW UP. PT DISCHARGED WITH ALL BELONGINGS, IN STABLE CONDITION
== END 2022-05-12 07:58 | disposition home or self-care (01) ==
LOC: SED 06:20
DX: G47.00 Insomnia, unspecified (principal); F41.9 Anxiety disorder, unspecified; Z91.010 Allergy to peanuts; Z79.899 Other long term (current) drug therapy
CPT/HCPCS: 99283

== ENCOUNTER 2022-05-17 19:18 | Emergency (ER) | payer MEDICAID ==
[~2022-05-17] VITALS: Ht 165.1 cm; Wt 72.6 kg
[~2022-05-17 19:18] MED LIST changes: +HYDR50TA61 PO; +MELA1TAB29 PO
[2022-05-17 20:08] VITALS: BP_SYST 124
[2022-05-17] MEDS ORDERED: ONDA-8 TL (20:53)
[2022-05-17] MEDS ORDERED: NAPR-1172 PO (20:53)
[2022-05-17 21:16] VITALS: BP_SYST 121
--- NOTE | 2022-05-17 21:16 | NUR ---
Patient given written and verbal discharge instructions by Dr Trinidad and verbalizes understanding. ER MD discussed with patient the results and treatment provided. Patient in stable condition. ID arm band removed by Dr Trinidad. Rx of Naproxen and ondansetron given by Dr Trinidad. Patient educated on pain management and to follow up with PMD. Opportunity for questions provided and answered by Dr Trinidad.
== END 2022-05-17 21:16 | disposition home or self-care (01) ==
LOC: SED 19:18
DX: J02.8 Acute pharyngitis due to other specified organisms (principal); B97.89 Other viral agents as the cause of diseases classified elsewhere; Z91.010 Allergy to peanuts; Z79.899 Other long term (current) drug therapy
CPT/HCPCS: 99283

== ENCOUNTER 2022-06-09 18:58 | Emergency (ER) | payer MEDICAID ==
[~2022-06-09] VITALS: Ht 157.5 cm; Wt 80.3 kg
[~2022-06-09 18:58] MED LIST changes: +DICY10CA13 PO; +FAMO20TA8 PO; +NAPR-1172 PO
[2022-06-09 19:21] VITALS: BP_SYST 117
--- NOTE | 2022-06-09 19:27 | NUR ---
Patient came from home with c/o of lower abdominal pain rated 8/10 that started about 1830. Pt states she was having intercourse when the pain started. Has a history of ovarian cyst. Reports not having a period since Jan 2022.
[2022-06-09] MEDS ORDERED: ACETAMINOPHEN 500 MG TABLET ONE (19:43)
[2022-06-09] MEDS ORDERED: ACETAMINOPHEN 500 MG TABLET PO ONE (19:45)
--- NOTE | 2022-06-09 19:45 | NUR ---
Medicated with tylenol per MD order.
[2022-06-09 20:29] LABS: HEMATOCRIT 37.9 % (36-48); HEMOGLOBIN 12.2 g/dL (12.0-16.0); MEAN CORPUSCULAR HEMOGLOBIN 24 pg (27-31); MEAN CORPUSCULAR HGB CONC 32 % (32-36); MEAN CORPUSCULAR VOLUME 73 fL (79.0-98.0); PLATELET COUNT (AUTO) 375 K/uL (130-430); RED BLOOD CELL COUNT(AUTO) 5.22 MIL/uL (4.2-6.2); RED CELL DISTRIBUTION WIDTH 15.4 % (9.0-15.0); WHITE BLOOD COUNT (AUTO) 11.4 K/uL (4.5-11.0)
[2022-06-09 20:44] LABS: CALCIUM 9.2 mg/dL (8.4-11.0); CREATININE 0.72 mg/dL (0.55-1.30); POTASSIUM 4.1 mmol/L (3.5-5.1); TOTAL BILIRUBIN 0.4 mg/dL (0.0-1.0)
[2022-06-09 20:57] LABS: LYMPHOCYTES % (AUTO) 19.7 % (20.5-51.5); MONOCYTES % (AUTO) 8.7 % (1.7-9.3); NEUTROPHILS % (AUTO) 69.4 % (40.0-70.0)
[2022-06-09 20:58] LABS: BASOPHILS # (AUTO) 0.1 K/uL (0.0-0.2); BASOPHILS % (AUTO) 0.5 % (0.0-2.0); EOSINOPHILS # (AUTO) 0.2 K/uL (0.0-0.4); EOSINOPHILS % (AUTO) 1.7 % (0.0-4.0); LYMPHOCYTES # (AUTO) 2.2 K/uL (1.0-5.5); NEUTROPHILS # (AUTO) 7.9 K/uL (1.8-7.7)
--- NOTE | 2022-06-10 02:13 | NUR ---
. UA COLLECTED AND SENT. PT RESTING . CONTINUED MONITORINGPT BIB AMB WITH CHARGE NURSE. C/O VAGINAL PAIN AFTER INTERCOURSE YESTERDAY. PAIN LEVAL06/09. C/O BURING URINATION AND FREQUENCY
--- NOTE | 2022-06-10 03:22 | NUR ---
PENDING U/S RESULTS. PT RESTING COMFORTABLOY. CONTINUED MONITORING.
[2022-06-10] MEDS ORDERED: LORazepam 2 MG/ML VIAL IM ONE (04:45)
[2022-06-10 04:56] VITALS: BP_SYST 120
--- NOTE | 2022-06-10 04:58 | NUR ---
ABHI GOMES PT STABLE FOR D/C TO HOME WITH UBER. AMB TO LOBBY WITH ALL PAPERWORK IN HAND
== END 2022-06-10 04:56 | disposition home or self-care (01) ==
LOC: SED 18:58
DX: R10.2 Pelvic and perineal pain (principal); N83.209 Unspecified ovarian cyst, unspecified side; F41.9 Anxiety disorder, unspecified; F31.9 Bipolar disorder, unspecified; Z91.010 Allergy to peanuts; Z79.899 Other long term (current) drug therapy
CPT/HCPCS: 99284; 76856; 80053; 84703; 83690; 85025; 36415; 96372; J2060

== ENCOUNTER 2022-06-16 06:05 | Emergency (ER) | payer MEDICAID ==
[~2022-06-16] VITALS: Ht 157.5 cm; Wt 77.1 kg
[2022-06-16 06:14] VITALS: BP_SYST 137
--- NOTE | 2022-06-16 06:14 | NUR ---
Patient triaged and placed in waiting room. VSS and patient appears in no acute distress at this time. Awaiting available bed, and MD notified of need for MSE.
--- NOTE | 2022-06-16 07:11 | NUR ---
Report given to Cyn MOE
[2022-06-16 07:24] LABS: BASOPHILS % (AUTO) 0.4 % (0.0-2.0); EOSINOPHILS # (AUTO) 0.1 K/uL (0.0-0.4); EOSINOPHILS % (AUTO) 0.8 % (0.0-4.0); HEMATOCRIT 35.6 % (36-48); HEMOGLOBIN 11.7 g/dL (12.0-16.0); LYMPHOCYTES # (AUTO) 1.6 K/uL (1.0-5.5); LYMPHOCYTES % (AUTO) 22.3 % (20.5-51.5); MEAN CORPUSCULAR HEMOGLOBIN 24 pg (27-31); MEAN CORPUSCULAR HGB CONC 33 % (32-36); MEAN CORPUSCULAR VOLUME 72 fL (79.0-98.0); MONOCYTES # (AUTO) 0.6 K/uL (0.0-1.0); MONOCYTES % (AUTO) 7.9 % (1.7-9.3); NEUTROPHILS # (AUTO) 4.8 K/uL (1.8-7.7); NEUTROPHILS % (AUTO) 68.6 % (40.0-70.0); PLATELET COUNT (AUTO) 363 K/uL (130-430); RED BLOOD CELL COUNT(AUTO) 4.94 MIL/uL (4.2-6.2)
[2022-06-16 07:35] LABS: CALCIUM 9.1 mg/dL (8.4-11.0); CREATININE 0.65 mg/dL (0.55-1.30); POTASSIUM 3.5 mmol/L (3.5-5.1)
[2022-06-16 07:40] LABS: TOTAL BILIRUBIN 0.9 mg/dL (0.0-1.0)
[2022-06-16 09:09] LABS: BILIRUBIN,URINE NEGATIVE (NEGATIVE); BLOOD, URINE NEGATIVE (NEGATIVE); CLARITY/URINE SL CLOUDY (CLEAR); COLOR,URINE YELLOW (YELLOW); GLUCOSE,URINE NEGATIVE (NEGATIVE); KETONES,URINE 1+ (NEGATIVE); LEUKOCYTE ESTERASE ,URINE NEGATIVE (NEGATIVE); NITRITE, URINE NEGATIVE (NEGATIVE); PROTEIN URINE 1+ (NEGATIVE); UROBILINOGEN,URINE 0.2 (0.2-1.0)
--- NOTE | 2022-06-16 09:11 | NUR ---
Patient left without being seen.
--- NOTE | 2022-06-16 09:13 | NUR ---
Patient left without being seen.
--- NOTE | 2022-06-16 09:13 | NUR ---
Karrie parrish in [facility] - 06/16/22 at 0913 by [email or web address] Patient left without being seen.
[2022-06-16 09:30] LABS: BACTERIA,URINE RARE /HPF (None Seen); RBC,URINE 0-3 /HPF (0-3); WBC,URINE 0-3 /HPF (0-3)
[2022-06-16 09:45] LABS: BARBITURATE, URINE NEGATIVE (NEG <=200); BENZODIAZEPINE, URINE NEGATIVE (NEG <=150); CANNABINOID, URINE POSITIVE (NEG <=50); COCAINE, URINE NEGATIVE (NEG <=150); METHAMPHETAMINES SCREEN,URINE NEGATIVE (NEG <=500); OPIATE, URINE POSITIVE (NEG <=100); PHENCYCLIDINE SCREEN,URINE NEGATIVE (NEG <=25); UR TRICYCLIC ANTIDEPRESSANTS NEGATIVE (NEG <=300); URINE AMPHETAMINE NEGATIVE (NEG <=500); URINE METHADONE NEGATIVE (NEG <=200); URINE OXYCODONE SCREEN NEGATIVE (NEG <=100); URINE PROPOXYPHENE SCREEN NEGATIVE (NEG <=300)
== END 2022-06-16 09:11 | disposition left against medical advice (07) ==
LOC: SED 06:05
DX: R10.9 Unspecified abdominal pain (principal); Z53.21 Procedure and treatment not carried out due to patient leaving prior to being seen by health care provider
CPT/HCPCS: 36415; 80053; 80307; 81000; 83690; 85025; 85651-TC